=== PATIENT | male | born 1985 | race Caucasian/White ===

== ENCOUNTER 2017-12-05 15:08 | Emergency (ER) | payer OTHER ==
[2017-12-05 15:23] VITALS: BP 126/62
--- NOTE | 2017-12-05 15:28 | ER Document Report ---
ED General - General Chief Complaint: Toe Injury Stated Complaint: TOE INJURY Time Seen by Provider: 12/05/17 15:27 Mode of Arrival: Ambulatory Information source: Patient TRAVEL OUTSIDE OF THE [place] IN LAST 30 DAYS: No - HPI Notes: 32-year-old male presents to the emergency room today with complaints of right foot pain after he dropped a dresser on his big toe x 1 hour ago. Reports pain is 6 out of 10, throbbing achy. worse with movement, better with elevation. no otc meds tried. tetanus is not utd. Denies any numbness or tingling to bilateral lower extremities equally. Denies any other area of injury. Unable to bear full weight. Denies fevers, chills, chest pain,palpitations, shortness of breath, dyspnea, nausea, vomiting, diarrhea, abdominal pain, hematuria,blurred vision, double vision, loss of vision, speech changes, LH, dizziness, syncope, headaches, wheezing, ST, URI, neck pain, weakness, bowel or bladder dysfunction, saddle anesthesia, numbness or tingling in bilateral upper or lower extremities equally, muscle paralysis, weakness in bilateral upper or lower extremities equally or rash. Denies IV drug use. - Related Data Allergies/Adverse Reactions: No Known Allergies Allergy (Unverified 12/05/17 15:12) Past Medical History - General Information source: Patient - Social History Smoking Status: Current Every Day Smoker Family History: Reviewed & Not Pertinent Review of Systems - Review of Systems Constitutional: No symptoms reported EENT: No symptoms reported Cardiovascular: No symptoms reported Respiratory: No symptoms reported Gastrointestinal: No symptoms reported Genitourinary: No symptoms reported Male Genitourinary: No symptoms reported Musculoskeletal: See HPI Skin: No symptoms reported Hematologic/Lymphatic: No symptoms reported Neurological/Psychological: No symptoms reported Physical Exam - Vital signs Vitals: Temp Pulse Resp BP Pulse Ox 98.9 F 84 16 126/62 H 98 12/05/17 15:21 12/05/17 15:21 12/05/17 15:21 12/05/17 15:21 12/05/17 15:21 - Notes Notes: PHYSICAL EXAMINATION: GENERAL: Well-appearing, well-nourished and in no acute distress. HEAD: Atraumatic, normocephalic. EYES: Pupils equal round and reactive to light, extraocular movements intact, sclera anicteric, conjunctiva are normal. ENT: Nares patent, oropharynx clear without exudates. Moist mucous membranes. NECK: Normal range of motion, supple without lymphadenopathy LUNGS: Breath sounds clear to auscultation bilaterally and equal. No wheezes rales or rhonchi. HEART: Regular rate and rhythm without murmurs ABDOMEN: Soft, nontender, nondistended abdomen. No guarding, no rebound. No masses appreciated. Musculoskeletal: Normal range of motion, no pitting or edema. No cyanosis. NEUROLOGICAL: Cranial nerves grossly intact. Normal speech, normal gait. Normal sensory, motor exams. Right great toe STS and tenderness on DIP with bleeding around nail with palpation. no open laceration. Unable to palpate a step-off. No open lesions. squeeze test negative. dtr +2 BLE. Limited APROM. distal pulses + 2 in BUE. full motor and sensory function. No vascular compromise. Ankle exam within normal limits. PSYCH: Normal mood, normal affect. SKIN: Warm, Dry, normal turgor, no rashes or lesions noted. Course - Re-evaluation Re-evalutation: 32-year-old male presents today with complaints of right toe pain after dresser fell on his foot, noted bleeding. Tetanus is not up-to-date. X-ray right foot shows a fracture to the right tuff first distal phalanx. 100 mg of clindamycin IV due to having an open fracture as well as his tetanus being updated. Wound irrigated with high-pressure normal saline, no foreign body seen on expiration of the wound. Patient will be discharged with crutches and a postop shoe. Patient states his pain is under control after given IVP Toradol. I have reevaluated this patient multiple times and no significant life threatening changes, no signs of toxicity, sepsis or peritonitis are noted. The patient and I have discussed the diagnosis and risks, and we agree with discharging home and close follow-up. We also discussed returning to the Emergency Department immediately if new or worsening symptoms occur with the understanding that symptoms and presentations can change. At this time will discharge with return precautions and follow-up recommendations. Verbal discharge instructions given a the bedside and opportunity for questions given. We have discussed the symptoms which are most concerning (e.g., saddle anesthesia, urinary or bowel incontinence or retention, changing or worsening pain) that necessitate immediate return. Medication warnings reviewed. Patient is in agreement with this plan and has verbalized understanding of return precautions and the need for primary care follow-up in the next 24-72 hours. Patient verbalized understanding of plan of care and agree with plan of care. - Vital Signs Vital signs: Temp Pulse Resp BP Pulse Ox 98.9 F 84 16 126/62 H 98 12/05/17 15:21 12/05/17 15:21 12/05/17 15:21 12/05/17 15:21 12/05/17 15:21 Discharge - Discharge Clinical Impression: Toe fracture, right Qualifiers: Encounter type: initial encounter Toe: great toe Fracture type: open Phalanx: proximal Fracture alignment: nondisplaced Qualified Code(s): S92.414B - Nondisplaced fracture of proximal phalanx of right great toe, initial encounter for open fracture Condition: Good Disposition: HOME, SELF-CARE Instructions: Clindamycin ([facility]), Use of Crutches ([facility]), Post-Op Shoe ([facility]), Tetanus Immunization Given ([facility]), Fractured Toe ([facility]) Additional Instructions: Open toe Tuft Fracture The tip of your toe is broken. As the fracture occurred, it burst the skin open. Usually the toenail l is knocked loose in this type of injury. The cut should heal in about ten days, and the bone will be healed in three or four weeks. A new toenail will take about three months to grow out. The fracture will be protected with a splint or a very bulky wrap. Elevating the finger will help reduce pain and swelling. Cold packs can help. Keep the wound dry. Don't expose the finger to damaging chemicals. Redress the wound daily. You'll need to continue with a protective splint after the cut has healed. When you can push firmly on the tip of your finger without any pain, you don' t need the splint. If any signs of infection occur (swelling, redness, increasing tenderness, red streaks, tender lumps in the armpit, or fever), see the doctor immediately. Use crutches and postop she was directed. Take ibuprofen as needed. Rice therapy. 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 Return immediately for any new or worsening symptoms. Follow up with primary care provider, call tomorrow to make followup appointment. Prescriptions: Clindamycin HCl 300 mg PO Q6H #28 capsule Ibuprofen 600 mg PO QIDP PRN #20 tablet PRN Reason: Forms: Return to Work Referrals: LANA KAUR MD [ACTIVE STAFF] - Follow up in 1 week MARIELENA CASTILLO MD [ACTIVE STAFF] - Follow up in 3-5 days
--- NOTE | 2017-12-05 16:03 | RADIOLOGY REPORT (SQ) ---
EXAM DESCRIPTION: FOOT RIGHT COMPLETE COMPLETED DATE/TIME: 12/05/2017 3:53 pm REASON FOR STUDY: dropped heavy object on right foot COMPARISON: None. NUMBER OF VIEWS: Three views. TECHNIQUE: AP, lateral and oblique radiographic images acquired of the right foot. LIMITATIONS: None. FINDINGS: MINERALIZATION: Normal. BONES: Mildly displaced fracture through the tuft of the 1st distal phalanx. Bones otherwise intact. JOINTS: No effusions. SOFT TISSUES: Associated soft tissue swelling. OTHER: No other significant finding. IMPRESSION: TUFT FRACTURE DISTAL PHALANX 1ST TOE RIGHT FOOT. TECHNICAL DOCUMENTATION: JOB ID: [id number] [employer]- All Rights Reserved Reading location - IP/workstation name: [email or web address]
[2017-12-05] MEDS ORDERED: HYDROMORPHONE HCL INJ/PF 2 MG/ML AMPULE IV ONE (16:05)
[2017-12-05] MEDS ORDERED: CLINDAMYCIN 900 MG/D5W RTU 50 ML IV ONE (16:05)
[2017-12-05] MEDS ORDERED: KETOROLAC TROMETHAMINE INJ/PF 30 MG/1 ML SDV IV ONE (16:10)
[2017-12-05] MEDS ORDERED: DIPH/PERTUSS(ACELL)/TETANUS VAC/PF 0.5 ML SYR (>=10YO) IM ONE (16:10)
== END 2017-12-05 18:00 | disposition left against medical advice (07) ==
LOC: ER 15:08
DX: S92.414B Nondisplaced fracture of proximal phalanx of right great toe, initial encounter for open fracture (principal); M79.671 Pain in right foot; W22.03XA Walked into furniture, initial encounter; F17.200 Nicotine dependence, unspecified, uncomplicated
CPT/HCPCS: 99283; 90471; 96375; 96365; 73630; 90715; J1885

== ENCOUNTER 2018-10-13 05:54 | Emergency (ER) | payer OTHER ==
[2018-10-13] MEDS ORDERED: NORMAL SALINE 1000 ML 1,000 ML IV ONE (06:20)
[2018-10-13 06:28] LABS: ABSOLUTE EOSINOPHILS # (AUTO) 0.1 10^3/uL (0.0-0.6); ABSOLUTE LYMPHOCYTES (AUTO) 4.1 10^3/uL (0.5-4.7); ABSOLUTE MONOCYTES (AUTO) 0.9 10^3/uL (0.1-1.4); ABSOLUTE NEUT (AUTO) 6.6 10^3/uL (1.7-8.2); BASOPHILS % (AUTO) 0.3 % (0-2); HEMATOCRIT 39.5 % (37.9-51.0); HEMOGLOBIN 14.1 g/dL (13.5-17.0); LYMPHOCYTES % (AUTO) 34.7 % (13-45); MEAN CORPUSCULAR HGB CONC 35.7 g/dL (32.0-36.0); MEAN CORPUSCULAR VOLUME 87 fl (80-97); MONOCYTES % (AUTO) 7.9 % (3-13); PLATELET COUNT 177 10^3/uL (150-450); RED BLOOD COUNT 4.55 10^6/uL (4.35-5.55); RED CELL DISTRIBUTION WIDTH 13.4 % (11.5-14.0); SEGMENTED NEUTROPHILS % (AUTO) 56.1 % (42-78); TOTAL CELLS COUNTED % (AUTO) 100 %; WHITE BLOOD COUNT 11.7 10^3/uL (4.0-10.5)
[2018-10-13 06:40] LABS: ALANINE AMINOTRANSFERASE 26 U/L (21-72); ALBUMIN 4.7 g/dL (3.5-5.0); ALKALINE PHOSPHATASE 61 U/L (38-126); ANION GAP 11 (5-19); ASPARTATE AMINO TRANSFERASE 27 U/L (17-59); BILIRUBIN,DIRECT 0.1 mg/dL (0.0-0.4); BILIRUBIN,TOTAL 0.4 mg/dL (0.2-1.3); BLOOD UREA NITROGEN 12 mg/dL (7-20); CALCIUM 9.6 mg/dL (8.4-10.2); CARBON DIOXIDE 24 mmol/L (22-30); CHLORIDE 104 mmol/L (98-107); GLUCOSE 97 mg/dL (75-110); LIPASE 91.3 U/L (23-300); SODIUM 138.9 mmol/L (137-145); TOTAL PROTEIN 7.2 g/dL (6.3-8.2)
[2018-10-13] MEDS ORDERED: KETOROLAC TROMETHAMINE INJ/PF 30 MG/1 ML SDV IV ONE (06:40)
[2018-10-13] MEDS ORDERED: ONDANSETRON HCL INJ/PF 4 MG/2 ML SDV IV ONE (06:40)
--- NOTE | 2018-10-13 07:08 | RADIOLOGY REPORT (SQ) ---
EXAM DESCRIPTION: CT ABDOMEN PELVIS WITHOUT IV CONTRAST COMPLETED DATE/TME: 10/13/2018 06:20 CLINICAL HISTORY: 33 years, Male, left flank COMPARISON: None. TECHNIQUE: Axial CT images of the abdomen and pelvis were obtained without contrast. Sagittal and coronal reformats were performed. DLP 238 Images stored on PACS. All CT scanners at this facility use dose modulation, iterative reconstruction, and/or weight based dosing when appropriate to reduce radiation dose to as low as reasonably achievable (ALARA). [facility]: Dose Right [facility]: CareDose [facility]: Dose Right [facility]: Teradose 4D [facility]: Smart MightyText LIMITATIONS: None. FINDINGS: The lung bases are clear. The liver, gallbladder, pancreas, spleen, and adrenal glands are unremarkable. There is no evidence of urolithiasis or hydronephrosis on the right. There is a 4 mm stone near the left UVJ without significant hydroureter or hydronephrosis. There is no intraperitoneal free air or fluid. There is no lymphadenopathy. The stomach and small bowel appear unremarkable. The appendix is not uniquely identified, however there are no pericecal inflammatory changes. The colon is incompletely distended. The prostate gland is unremarkable. There are no lytic or blastic bone lesions IMPRESSION: 4 mm stone near the left UVJ without significant hydroureter or hydronephrosis. TECHNICAL DOCUMENTATION: Quality ID # [id number]: Final reports with documentation of one or more dose reduction techniques (e.g., Automated exposure control, adjustment of the mA and/or kV according to patient size, use of iterative reconstruction technique) copyright 2011 [employer]- All Rights Reserved
[2018-10-13] MEDS ORDERED: RINGERS SOLUTION,LACTATED 1,000 ML IV ONE (07:25)
[2018-10-13] MEDS ORDERED: MORPHINE SULFATE 10 MG/ML INJ IV ONE (07:32)
[2018-10-13 08:06] LABS: APPEARANCE,URINE SLIGHTLY-CLOUDY; BILIRUBIN,URINE NEGATIVE (NEGATIVE); GLUCOSE, URINE NEGATIVE (NEGATIVE); KETONES,URINE 20 mg/dL (NEGATIVE); LEUKOCYTE ESTERASE,URINE NEGATIVE (NEGATIVE); NITRITE,URINE NEGATIVE (NEGATIVE); PROTEIN,URINE 30 mg/dL (NEGATIVE); URINE SPECIFIC GRAVITY 1.027
[2018-10-13 08:07] LABS: COLOR,URINE YELLOW
--- NOTE | 2018-10-13 08:08 | ER Document Report ---
ED General - General Chief Complaint: Abdominal Pain Stated Complaint: ABDOMINAL PAIN Time Seen by Provider: 10/13/18 06:10 TRAVEL OUTSIDE OF THE [place] IN LAST 30 DAYS: No - HPI Patient complains to provider of: Abdominal pain testicle pain Notes: Patient coming in for evaluation of abdominal pain testicle pain. Patient states acute onset earlier this morning. Patient is left-sided pain left flank pain along with left testicle pain. Patient denies any trauma to the area. P atient denies any difficulty in urinating. Patient states nausea vomiting no diarrhea. Patient otherwise looks to be uncomfortable rocking back and forth. Patient states similar episode before came to the ER however was never diagnosed with any acute pathology. Patient looks to be no obvious distress respiratory upon my evaluation. A brief review of the patient's past medical records available in [facility] was performed - Related Data Allergies/Adverse Reactions: No Known Allergies Allergy (Verified 10/13/18 07:20) Past Medical History - Social History Smoking Status: Current Every Day Smoker Family History: Reviewed & Not Pertinent Patient has suicidal ideation: No Patient has homicidal ideation: No Renal/ Medical History: Denies: Hx Peritoneal Dialysis Past Surgical History: Reports: Hx Tonsillectomy Review of Systems - Review of Systems Constitutional: No symptoms reported EENT: No symptoms reported Cardiovascular: No symptoms reported Respiratory: No symptoms reported Gastrointestinal: Nausea, Vomiting Genitourinary: Flank pain Male Genitourinary: No symptoms reported Musculoskeletal: No symptoms reported Skin: No symptoms reported Hematologic/Lymphatic: No symptoms reported Neurological/Psychological: No symptoms reported -: Yes All other systems reviewed and negative Physical Exam - Vital signs Vitals: Temp Pulse Resp BP Pulse Ox 98.2 F 95 30 H 128/80 H 99 10/13/18 06:01 10/13/18 06:01 10/13/18 06:01 10/13/18 06:01 10/13/18 06:01 Interpretation: Normal - General General appearance: Appears well, Alert - HEENT Head: Normocephalic, Atraumatic Eyes: Normal Pupils: PERRL - Respiratory Respiratory status: No respiratory distress Chest status: Nontender Breath sounds: Normal Chest palpation: Normal - Cardiovascular Rhythm: Regular Heart sounds: Normal auscultation Murmur: No - Abdominal Inspection: Normal Distension: No distension Bowel sounds: Normal Tenderness: Nontender Organomegaly: No organomegaly - Genitourinary Inspection: Normal Tenderness: Nontender Cremasteric reflex: Normal Scrotum: Normal - Back Back: Normal, Nontender - Extremities General upper extremity: Normal inspection, Nontender, Normal color, Normal ROM, Normal temperature General lower extremity: Normal inspection, Nontender, Normal color, Normal ROM, Normal temperature, Normal weight bearing. No: El's sign - Neurological Neuro grossly intact: Yes Cognition: Normal Orientation: AAOx4 [place] Coma Scale Eye Opening: Spontaneous [place] Coma Scale Verbal: Oriented [place] Coma Scale Motor: Obeys Commands [place] Coma Scale Total: 15 Speech: Normal Motor strength normal: LUE, RUE, LLE, RLE Sensory: Normal - Psychological Associated symptoms: Normal affect, Normal mood - Skin Skin Temperature: Warm Skin Moisture: Dry Skin Color: Normal Course - Re-evaluation Re-evalutation: 10/13/18 08:02 Patient was to have a left 4 mm kidney stone causing no signs of renal failure or urosepsis. Patient will be discharged home requesting no narcotics be given to him at this time. We will get the patient Tylenol Motrin will give the patient Zofran and Phenergan for his nausea and vomiting. We will also give the patient a dose of Flomax. Patient will be discharged home. The patient presents with abdominal pain without signs of peritonitis or other life-threatening or serious etiology. The patient appears stable for discharge and has been instructed to return immediately if the symptoms worsen in any way, or in 8-12hr if not improved for re-evaluation. The patient has been instructed to return if the symptoms worsen or change in any way. - Vital Signs Vital signs: Temp Pulse Resp BP Pulse Ox 98.2 F 95 10 L 128/80 H 99 10/13/18 06:01 10/13/18 06:01 10/13/18 07:00 10/13/18 06:01 10/13/18 06:01 - Laboratory Result Diagrams: 10/13/18 06:15 10/13/18 06:15 Laboratory results interpreted by me: 10/13/18 10/13/18 06:15 07:23 WBC 11.7 H Urine Protein 30 H Urine Ketones 20 H Urine Blood LARGE H Urine Urobilinogen 4.0 H Discharge - Discharge Clinical Impression: Kidney stone on left side Condition: Good Disposition: HOME, SELF-CARE Instructions: Flomax ([facility]), Kidney Stone ([facility]) Additional Instructions: Your evaluation today shows a left 4 mm kidney stone. Kidney stone will pass on its own is very important that you continue to drink plenty of fluids to stay well-hydrated. Please take the Zofran or Phenergan as needed for nausea vomiting You may take the Flomax this may aid in passing of your kidney stone. Tylenol Motrin for pain control Prescriptions: Ondansetron [Zofran Odt 4 mg Tablet] 4 mg PO Q4HP PRN #30 tab.rapdis PRN Reason: Ketorolac Tromethamine [Toradol 10 mg Tablet] 10 mg PO Q8HP PRN #30 tablet PRN Reason: Promethazine HCl [Phenergan 25 mg Tablet] 25 - 50 mg PO ASDIR PRN #30 tablet PRN Reason: Tamsulosin HCl [Flomax 0.4 mg Cap.sr] 0.4 mg PO DAILY #7 cap.sr.24h
[2018-10-13] MEDS ORDERED: TAMSULOSIN HCL 0.4 MG CAP.SR.24H PO ONE (08:09)
[2018-10-13 08:29] VITALS: BP 105/60
== END 2018-10-13 08:35 | disposition home or self-care (01) ==
LOC: ER 05:54
DX: N20.0 Calculus of kidney (principal); N50.812 Left testicular pain; R10.9 Unspecified abdominal pain; R11.2 Nausea with vomiting, unspecified; F17.200 Nicotine dependence, unspecified, uncomplicated
CPT/HCPCS: 99284; 96361; 96374; 96375; 36415; 83690; 85025; 80053; 81001; 74176; J1885; J2405; J7030